=== PATIENT | female | born 1995 | race Caucasian/White ===

== ENCOUNTER 2018-05-18 08:28 | Emergency (ER) | END 2018-05-18 11:41 | disposition home or self-care (01) ==

== ENCOUNTER 2018-10-26 07:24 | Observation (INO) | payer OTHER ==
[2018-10-26] VITALS (11 sets, daily range): BP systolic 112–147; BP diastolic 55–71; PULSE 64–116; RESP 13–20; Ht 167.6 cm; Wt 65.0 kg
[~2018-10-26] VITALS: Ht 167.6 cm; Wt 65.0 kg
[~2018-10-26 07:24] MED LIST: CEFAZOLIN 1 GM INJ ONE; NAPR-985 PO; ONDA4TAB8 PO
[2018-10-26] MEDS ORDERED: SOD CHLORIDE 0.9% 1,000 ML IV STA (07:35)
[2018-10-26] MEDS ORDERED: HYDROmorphONE 1 MG/ML SYG IV STA ×2 (07:35→07:48)
[2018-10-26] MEDS ORDERED: ONDANSETRON 4 MG INJ IV STA ×2 (07:35→07:48)
[2018-10-26] MEDS ORDERED: KETOROLAC 30 MG INJ IV STA (07:48)
[2018-10-26] MEDS ORDERED: morphine 4 MG/ML VIAL IV STA (08:13)
[2018-10-26] MEDS ORDERED: LORAZEPAM 2 MG INJ IV ONE (08:30)
[2018-10-26] MEDS ORDERED: SOD CHLORIDE 0.9% 1,000 ML IV SCH (11:28)
[2018-10-26] MEDS ORDERED: ONDANSETRON 4 MG INJ IV PRN (11:30)
[2018-10-26] MEDS ORDERED: ACETAMINOPHEN 325 MG TAB PO PRN (11:30)
--- NOTE | 2018-10-26 11:31 | ERD ---
ER Documentation Chief Complaint Chief Complaint Complains of right flank and abdominal pain since this am HPI This a 23-year-old female who complains of sudden onset of right back pain with severe 10 out of 10 pain. She has nausea but no vomiting no diarrhea no dysuria no hematuria no history of kidney stones. The pain is nonradiating ROS All systems reviewed and are negative except as per history of present illness. Medications Home Meds Discontinued Scripts Ondansetron Hcl* (Zofran*) 4 Mg Tablet, 4 MG PO Q6H for NAUSEA AND/OR VOMITING, #30 TAB Prov:CODY COTA PA-C 05/18/18 Naproxen* (Naprosyn*) 500 Mg Tablet, 500 MG PO BID PRN for PAIN AND/OR INFLAMMATION, #30 TAB Prov:CODY COTA PA-C 05/18/18 Allergies Allergies: Coded Allergies: Sulfa (Sulfonamide Antibiotics) (Verified Allergy, Unknown, 10/26/18) PMhx/Soc Medical and Surgical Hx: pt denies Medical Hx, pt denies Surgical Hx Hx Alcohol Use: No Hx Substance Use: No Hx Tobacco Use: No Smoking Status: Never smoker FmHx Family History: No coronary disease Physical Exam Vitals Vital Signs Date Temp Pulse Resp B/P (MAP) Pulse Ox O2 O2 Flow FiO2 Time Delivery Rate 10/26/18 63 20 115/61 100 Room Air 10:56 (79) 10/26/18 66 20 127/78 100 Room Air 08:24 (94) 10/26/18 97.6 95 20 165/96 98 07:29 (119) Physical Exam Const: Well-developed, well-nourished Head: Atraumatic, normocephalic Eyes: Normal Conjunctiva, PERRLA, EOMI, normal sclera, no nystagmus ENT: Normal External Ears, Nose and Mouth, moist mucus membranes. Neck: Full range of motion. No meningismus, no lymphadenopathy. Resp: Clear to auscultation bilaterally, no wheezing, rhonchi, rales Cardio: Regular rate and rhythm, no murmurs, S1 S2 present Abd: Soft, right adnexal tenderness moderate, non distended. Normal bowel sounds, no guarding or rebound, no pulsitile abdominal masses or bruits Skin: No petechiae or rashes, no ecchymosis , no maculopapular rash Back: No midline or flank tenderness, nonreducible low back pain Ext: No cyanosis, or edema, FROM x 4, normal inspection, neurovascularly intact x 4 Neur: Awake and alert, STR 5/5 x 4, sensation intact x 4, no focal findings, cerebellum intact Psych: Normal Mood and Affect Result Diagram: 10/26/18 0738 10/26/18 0738 Results 24 hrs Laboratory Tests Test 10/26/18 07:38 White Blood Count 10.7 10^3/ul Red Blood Count 4.86 10^6/ul Hemoglobin 14.2 g/dl Hematocrit 43.3 % Mean Corpuscular Volume 89.1 fl Mean Corpuscular Hemoglobin 29.2 pg Mean Corpuscular Hemoglobin Concent 32.8 g/dl Red Cell Distribution Width 11.9 % Platelet Count 301 10^3/UL Mean Platelet Volume 10.3 fl Immature Granulocytes % 0.300 % Neutrophils % 70.4 % Lymphocytes % 22.7 % Monocytes % 5.8 % Eosinophils % 0.4 % Basophils % 0.4 % Nucleated Red Blood Cells % 0.0 /100WBC Immature Granulocytes # 0.030 10^3/ul Neutrophils # 7.6 10^3/ul Lymphocytes # 2.4 10^3/ul Monocytes # 0.6 10^3/ul Eosinophils # 0.0 10^3/ul Basophils # 0.0 10^3/ul Nucleated Red Blood Cells # 0.0 10^3/ul Sodium Level 141 mmol/L Potassium Level 4.0 mmol/L Chloride Level 104 mmol/L Carbon Dioxide Level 27 mmol/L Anion Gap 10 Blood Urea Nitrogen 7 mg/dl Creatinine 0.84 mg/dl Est Glomerular Filtrat Rate mL/min > 60 mL/min Glucose Level 125 mg/dl Calcium Level 9.8 mg/dl Total Bilirubin 0.6 mg/dl Direct Bilirubin 0.00 mg/dl Indirect Bilirubin 0.6 mg/dl Aspartate Amino Transf (AST/SGOT) 26 IU/L Alanine Aminotransferase (ALT/SGPT) 30 IU/L Alkaline Phosphatase 61 IU/L Total Protein 7.3 g/dl Albumin 4.4 g/dl Globulin 2.90 g/dl Albumin/Globulin Ratio 1.51 Serum HCG, Qualitative NEGATIVE Current Medications Medications Dose Sig/Edison Start Time Status Last (Trade) Ordered Route PRN Stop Time Admin Dose Reason Admin Sodium 1,000 ml @ Q1H STAT 10/26/18 DC 10/26/18 Chloride 1,000 mls/hr IV 07:35 07:42 10/26/18 08:34 1 mg ONCE STAT 10/26/18 DC 10/26/18 Hydromorphone IV 07:35 07:39 HCl 10/26/18 07:37 (Dilaudid) Ondansetron 4 mg ONCE STAT 10/26/18 DC 10/26/18 HCl (Zofran IV 07:35 07:39 Inj) 10/26/18 07:37 1 mg ONCE STAT 10/26/18 DC 10/26/18 Hydromorphone IV 07:48 07:53 HCl 10/26/18 07:49 (Dilaudid) Ondansetron 4 mg ONCE STAT 10/26/18 DC 10/26/18 HCl (Zofran IV 07:48 07:52 Inj) 10/26/18 07:49 Ketorolac 30 mg ONCE STAT 10/26/18 DC 10/26/18 Tromethamine IV 07:48 07:59 (Toradol) 10/26/18 07:49 Morphine 8 mg ONCE STAT 10/26/18 DC Sulfate IV 08:13 (morphine) 10/26/18 08:15 Lorazepam 1 mg ONCE ONCE 10/26/18 DC 10/26/18 (Ativan) IV 08:30 08:40 10/26/18 08:31 Procedures/MDM Patient: OLI ORLANDO : 1995 Age: 23 Sex: F MR #: [id number] DOS: 10/26/18 0735 Ordering MD: ELHAM ORTIZ DO Location: E/R Room/Bed: PROCEDURE: CT Abdomen and Pelvis without contrast. CLINICAL INDICATION: Abdominal pain TECHNIQUE: CT scan of the abdomen and pelvis without contrast was performed on a multi-detector high-resolution CT scanner. Coronal and sagittal reformatted images obtained from the axial source images. Images were reviewed on a high-res [facility] PACS workstation. Exam CTDI 9.90 mGy Exam DLP 555.78 mGy-cm DICOM images are available. One or more of the following dose reduction techniques were utilized: 1.) Automated exposure control 2.) Adjustment of the mA +/- kV according to patient's size 3.) Use of iterative reconstruction technique. COMPARISON: US PELVIS 05/18/2018; CT 05/18/2018 FINDINGS: CT abdomen: LOWER THORAX: Lung bases are clear. LIVER AND GALLBLADDER: No abnormal findings. SPLEEN: Normal. PANCREAS: Normal. ADRENAL GLANDS: Normal. KIDNEYS: Kidneys are symmetric in size and morphology. No hydronephrosis or renal calculus. Bilateral ureters are unremarkable. VASCULATURE: Abdominal aorta is normal in caliber. LYMPH NODES: No significant retroperitoneal or mesenteric lymphadenopathy. BOWEL AND MESENTERY: Stomach and small bowel are unremarkable. A normal appendix is identified. The large bowel is unremarkable. CT pelvis: The urinary bladder appears normal. The uterus is unremarkable for age. There is mild asymmetric prominence of the right ovary which measures 3.2 x 4.3 x 5.4 cm. The left ovary is unremarkable. There is a small amount of free fluid in the pelvis. Bones: Regional bones and superficial soft tissues are grossly unremarkable for age. IMPRESSION: 1. Mild asymmetric prominence of the right ovary which measures 4.2 x 3.2 x 5.4 cm, possibly indicating underlying complex cyst. Trace associated pelvic free fluid. Consider further evaluation with pelvic ultrasound. 2. Normal appendix. RPTAT: HJBB Physician Sandro Date Time Electronically viewed and signed by Physician Sandro on 10/26/2018 08:49 xB/ CC: ELHAM ORTIZ DO [id number] [address] [place] [address] Radiology Main Line: [phone] DIAGNOSTIC IMAGING REPORT Patient: OLI ORLANDO : 1995 Age: 23 Sex: F MR #: [id number] DOS: 10/26/18 0935 Ordering MD: ELHAM ORTIZ DO Location: E/R Room/Bed: PROCEDURE: ULTRASOUND PELVIS CLINICAL INDICATION: 23-year-old female with pelvic pain and vomiting. TECHNIQUE: Multiple sonographic images of the pelvis were obtained utilizing a transabdominal and endovaginal technique. The images were reviewed on a PACS workstation. COMPARISON: CT abdomen/pelvis October 26, 2018; ultrasound pelvis May 18, 2018. FINDINGS: The uterus is visualized and measures 6.8 x 2.7 x 3.0 cm. The endometrial echo complex is within normal limits and measures 3.8 mm. There is trace pelvic free fluid. The right ovary is enlarged measures 7.0 x 3.8 x 5.6 cm with small cystic foci which appears to be displaced peripherally. There is no flow identified within the right ovary. The left ovary has a normal echotexture and measures 4.5 x 2.1 x 3.5 cm. Multiple small follicular cysts are noted. There is flow identified within the left ovary. No adnexal masses are noted. IMPRESSION: 1. Enlarged right ovary with no flow consistent with ovarian torsion. 2. Trace pelvic free fluid. .Sukhdeep Blair MD, MD Date Time Electronically viewed and signed by .Sukhdeep Blair MD, on 10/26/2018 10:35 .M/ CC: ELHAM ORTIZ DO [id number] Patient was seen by OB GEN Dr. christianson he will take the patient to the OR for a right ovarian torsion. Departure Diagnosis: Primary Impression: Torsion of right ovary and ovarian pedicle Condition: Stable ELHAM ORTIZ DO October 26, 2018 11:31
--- NOTE | 2018-10-26 11:51 | PREAC ---
Date/Time of Note Date/Time of Note DATE: 10/26/18 TIME: 11:50 Anesthesia Eval and Record Evaluation Time Pre-Procedure Interview DATE: 10/26/18 TIME: 11:50 Age 23 Sex female NPO: 8 hrs Preoperative diagnosis Ovarion Torsion Planned procedure Lap. Ovarectomy Past Medical History Past Medical History: None Surgery & Anesthesia Issues No known issue Meds Anticoagulation: No Beta Kasandra within 24 hr: No Reason Beta Kasandra not given: Pt. not on B-Kasandra Discontinued Scripts Ondansetron Hcl* (Zofran*) 4 Mg Tablet, 4 MG PO Q6H for NAUSEA AND/OR VOMITING, #30 TAB Prov:CODY COTA PA-C 05/18/18 Naproxen* (Naprosyn*) 500 Mg Tablet, 500 MG PO BID PRN for PAIN AND/OR INFLAMMATION, #30 TAB Prov:CODY COTA PA-C 05/18/18 Current Medications Sodium Chloride 1,000 ml @ 80 mls/hr [id number] IV ; Start 10/26/18 at 11:28; Stop 10/26/18 at 23:57 Ondansetron HCl (Zofran Inj) 4 mg BRIDGE ORDER PRN IV NAUSEA/VOMITING; Start 10/26/18 at 11:30; Stop 10/27/18 at 11:29 Acetaminophen (Tylenol Tab) 650 mg ER BRIDGE PRN PO .MILD PAIN 1-3 OR TEMP; Start 10/26/18 at 11:30; Stop 10/27/18 at 11:29 Meds reviewed: Yes Allergies Coded Allergies: Sulfa (Sulfonamide Antibiotics) (Verified Allergy, Unknown, 10/26/18) Allergies Reviewed: Yes Labs/Studies Labs Reviewed: Reviewed by anesthesiologist Result Diagram: 10/26/18 0738 10/26/18 0738 Laboratory Tests 10/26/18 07:38 test: Negative Pre-procedure Exam Last vitals Vital Signs Date Temp Pulse Resp B/P (MAP) Pulse Ox O2 O2 Flow FiO2 Time Delivery Rate 10/26/18 63 20 115/61 100 Room Air 10:56 (79) 10/26/18 97.6 07:29 Airway: Adequate mouth opening Mallampati: Mallampati II Teeth: Normal Lung: Normal Heart: Normal ASA Physical Status ASA physical status: 2 Emergency: E Planned Anesthetic General/MAC: ETT Pre-operative Attestations Prior to commencing anesthesia and surgery, the patient was re-evaluated, there was verification of: *The patient's identity *The results of appropriate recent lab work and preoperative vital signs *The above evaluation not changing prior to induction *Anesthetic plan, risk benefits, alternative and complications discussed with patient/family; questions answered; patient/family understands, accepts and wishes to proceed. CRISTINA NG MD October 26, 2018 11:51
[2018-10-26] MEDS ORDERED: ONDANSETRON 4 MG INJ ONE (11:55)
[2018-10-26] MEDS ORDERED: ROCURONIUM 50 MG INJ ONE (11:55)
[2018-10-26] MEDS ORDERED: PROPOFOL 20 ML ONE (11:55)
[2018-10-26] MEDS ORDERED: MIDAZOLAM 1 MG/ML 2 ML INJ ONE (11:55)
[2018-10-26] MEDS ORDERED: KETOROLAC 30 MG INJ ONE (11:55)
--- NOTE | 2018-10-26 13:25 | OPPN ---
Date/Time of Note Date/Time of Note DATE: 10/26/18 TIME: 13:23 Operative Report Preoperative Diagnosis Right ovarian torsion Postoperative Diagnosis Right ovarian cyst and torsion Operation/Procedure Performed Operative laparoscopy .Right ovarian cystectomy Surgeon see signature line ophthalmology assistant none Anesthesia: general Estimated blood loss: 0 - 10 ml's Transfusion Required none Specimen Right ovarian cyst wall Grafts/Implants none Complications none FERNANDO STEIN M.D. October 26, 2018 13:25
--- NOTE | 2018-10-26 13:27 | PAC ---
Date/Time of Note Date/Time of Note DATE: 10/26/18 TIME: 13:27 Post-Anesthesia Notes Post-Anesthesia Note Last documented vital signs Vital Signs Date Temp Pulse Resp B/P (MAP) Pulse Ox O2 O2 Flow FiO2 Time Delivery Rate 10/26/18 63 20 115/61 100 Room Air 10:56 (79) 10/26/18 97.6 07:29 Activity: WNL Respiratory function: WNL Cardiovascular function: WNL Mental status: Baseline Pain reasonably controlled: Yes Hydration appropriate: Yes Nausea/Vomiting absent: Yes CRISTINA NG MD October 26, 2018 13:27
[2018-10-26] MEDS ORDERED: OXYCODONE/ACETAMINOPHEN (5/325) TAB PO PRN (13:30)
--- NOTE | 2018-10-26 13:39 | PREOPHP ---
DATE OF ADMISSION: 10/26/2018 HISTORY OF PRESENT ILLNESS: A 23-year-old 0, para 0 admitted through the emergency room with on and off pain and suspected ovarian torsion. PAST MEDICAL HISTORY: Denies. PAST SURGICAL HISTORY: Denies. ALLERGIES: NKDA. PHYSICAL EXAMINATION: VITAL SIGNS: Stable. GENERAL: Normal. ABDOMEN: Right lower quadrant tenderness and positive rebound. GENITALIA: Deferred. ASSESSMENT AND PLAN: A 23-year-old 0, para 0, suspected of right ovarian torsion, consented for operative laparoscopy, possible right salpingo-oophorectomy. Risks and benefits were discussed w ith the patient. The right ovarian cystectomy was discussed with the patient. Consent was signed. Possible laparotomy was discussed with the patient. She was taken to the operating room. Dictated By: FERNANDO ESPANA/PADMINI Conf#: [id number] DID#: [id number]
[2018-10-26] MEDS: ONDANSETRON 4 MG INJ IV PRN ×2 (13:44→14:38)
[2018-10-26] MEDS: HYDROmorphONE 1 MG/5 ML IV SYRINGE IV PRN ×2 (13:45→13:53)
--- NOTE | 2018-10-26 13:58 | OPR ---
DATE OF OPERATION: 10/26/2018 PREOPERATIVE DIAGNOSES: 1. Right ovarian torsion. 2. Right ovarian cyst. POSTOPERATIVE DIAGNOSES: 1. Right ovarian torsion 2 times. 2. Right ovarian hemorrhagic cyst. OPERATION PERFORMED: Operative laparoscopy, right ovarian cystectomy, detorsion of the ovary. ATTENDING SURGEON: Gaurang Torres MD TYPE OF ANESTHESIA: General. COMPLICATIONS: None. ESTIMATED BLOOD LOSS: Minimal. DESCRIPTION OF PROCEDURE: The patient was taken to the operating room where general anesthesia was f ound to be adequate. The patient was placed in dorsal lithotomy position. After prep and drape, a w eighted speculum was placed inside the vaginal vault. Anterior lip of the cervix was grasped by sing le-tooth tenaculum. Cervix was dilated by Cabezas dilators and HUMI was inserted. A Choe was inserte d and attention was turned to abdominal field. A 1 cm incision was made above the umbilicus. First trocar was inserted under direct visualization of the camera, second and third trocar was inserted. Both sides of the 8 to 10 cm from the first trocar, right ovarian torsion 2 times was noticed. Pictures taken. Detorsion of ovary was done. Right ovarian cystectomy was done. Hemostasis achie odalis. Pictures taken. The patient tolerates copious irrigation of abdominal and pelvic cavity done. The patient tolerated the procedure well and was transferred to recovery room in stable condition. There was no complication regarding this surgery. Dictated By: GAURANG ESPANA/PADMINI Conf#: [id number] DID#: [id number]
== END 2018-10-26 16:35 | disposition home or self-care (01) ==
LOC: E/R 07:24 → REC 11:45
PROVIDERS: ADMIT Obstetrics & Gynecology; ATTEND Obstetrics & Gynecology
DX: N83.511 Torsion of right ovary and ovarian pedicle (principal); N83.01 Follicular cyst of right ovary
CPT/HCPCS: 36415; 58662; 58679; 74176; 76830; 76856; 80053; 84703; 85025; 88305; 96374; 96375; 99217; 99285; J0690; J1170; J1885; J2060; J2250; J2405; J3010; J7030; G0378; J2270